=== PATIENT | male | born 1960 | race Caucasian/White ===

== ENCOUNTER 2017-02-27 21:13 | Emergency (ER) | payer OTHER ==
[2017-02-27 21:20] VITALS: PULSE 74
--- NOTE | 2017-02-27 21:33 | EDPHY ---
H & P Stated Complaint: skin irritation /infection to l hip Source: Patient - Personal History Current Tetanus/Diphtheria Vaccine: Yes Current Tetanus Diphtheria and Acellular Pertussis (TDAP): Yes - Medical/Surgical History Hx Asthma: No Hx Chronic Respiratory Disease: No Hx Diabetes: No Hx Cardiac Disease: No Hx Renal Disease: No Hx Cirrhosis: No Hx Alcoholism: No Hx HIV/AIDS: No Hx Splenectomy or Spleen Trauma: No Other PMH: tonsils. wisdom teeth - Social History Smoking Status: Never smoked HPI/ROS: HPI CHIEF COMPLAINT: Left hip Infection. HISTORY OF PRESENT ILLNESS: Patient very pleasant 56-year-old male, he denies having any significant medical history does not take any daily medications presents emergency room with left hip redness swelling and pain. He states on Sunday he noticed a bump there however today it has progressively gotten worsening pain and swelling and redness and warmth. He has no pain with range of motion of the hip. He denies fever chills. Denies feeling ill. Over the lateral aspect of his left hip there is an area of redness with swelling present. There is a head present. Appears to be localized area of cellulitis. It does streak a little bit to the inner groin but no palpable lymphadenopathy or cord. Past Medical History: Denies medical history Past Surgical History: Denies surgical history Social History: Denies daily use drugs alcohol tobacco products. Family History: Noncontributory. ROS REVIEW OF SYSTEMS: A comprehensive 10 point review of systems is otherwise negative aside from elements mentioned in the history of present illness. Exam Constitutional triage nursing summary reviewed, vital signs reviewed, awake/ alert. Eyes normal conjunctivae and sclera, EOMI, PERRLA. HENT normal inspection, atraumatic, moist mucus membranes, no epistaxis, neck supple/ no meningismus, no raccoon eyes. Respiratory clear to auscultation bilaterally, normal breath sounds, no respiratory distress, no wheezing. Cardiovascular rate normal, regular rhythm, no murmur, no edema, distal pulses normal. Gastrointestinal soft, non-tender, no rebound, no guarding, normal bowel sounds, no distension, no pulsatile mass. Genitourinary no CVA tenderness. Musculoskeletal no midline vertebral tenderness, full range of motion, no calf swelling, no tenderness of extremities, no meningismus, good pulses, neurovascularly intact. Skin Left Lateral Hip: Area of erythema and swelling present. Area of a central head. Air cellulitis 2 cm wide by 6 cm horizontally long streaking to the groin. It has been outline. Area of induration present. Neurologic awake, alert and oriented x 3, AAOx3, moves all 4 extremities equally, motor intact, sensory intact, CN II-XII intact, normal cerebellar, normal vision, normal speech. Psychiatric normal mood/affect. Heme/Lymph/Immune no lymphadenopathy. Differential Diagnosis: Includes but is not limited to in a particular order focal cellulitis, abscess, MRSA infection, strep infection Medical Decision Making: Plan for this patient bedside ultrasound to see if there is a pus pocket that needs to be drained, placed on Keflex and Bactrim. Warm compresses. Check basic blood work. Re-evaluation: 2202: I did perform a bedside ultrasound of the area of cellulitis. There is a very small area of pus pocket directly over the head. This will be I indeed. 2306: Blood work is unremarkable. No high leukocytosis. Infection is been outline. I and D is been performed culture sent. Patient started on Bactrim and Keflex. Understands do warm compresses 3 to 4 times a day or warm soaks. Return if worsening redness swelling pain or fever. Take antibiotics as prescribed. Return if worsening symptoms he understands. Return precautions given. (Blas Mead) Constitutional: Initial Vital Signs Temperature (C) 36.9 C 02/27/17 21:16 Heart Rate 74 02/27/17 21:16 Respiratory Rate 18 02/27/17 21:16 Blood Pressure 136/82 H 02/27/17 21:16 O2 Sat (%) 97 02/27/17 21:16 O2 Delivery Mode Room Air Allergies/Adverse Reactions: No Known Allergies Allergy (Unverified 02/27/17 21:16) Home Medications: Medication Instructions Recorded Cephalexin [Keflex] 500 mg PO Q6H #28 cap 02/27/17 Sulfamethox/Tmp 800/160 mg 1 tab PO BID@1000,2200 #14 tab 02/27/17 [Bactrim Ds] Medical Decision Making Procedures: Procedure: Abscess drainage. The patient's abscess was located on the left lateral hip. I obtained verbal consent from the patient to drain the abscess who was informed about the possibility of bleeding and pain. The abscess was incised with #11 scalpel and a 4 mL amount of purulent drainage was expressed. Wound culture sent. I irrigated the wound copiously. Clean sterile dressing placed. The patient tolerated the procedure well. The procedure was performed by myself. (Carla Contreras) - Data Points Laboratory Results: Laboratory Results 02/27/17 22:11 02/27/17 22:11 02/27/17 02/27/17 22:11 22:11 WBC 7.28 10^3/uL 10^3/uL (3.80-9.50) RBC 4.92 10^6/uL 10^6/uL (4.40-6.38) Hgb 15.6 g/dL g/dL (13.7-17.5) Hct 44.4 % % (40.0-51.0) MCV 90.2 fL fL (81.5-99.8) MCH 31.7 pg pg (27.9-34.1) MCHC 35.1 g/dL g/dL (32.4-36.7) RDW 12.0 % % (11.5-15.2) Plt Count 191 10^3/uL 10^3/uL (150-400) MPV 9.6 fL fL (8.7-11.7) Neut % (Auto) 71.7 % % (39.3-74.2) Lymph % (Auto) 19.5 % % (15.0-45.0) Vance % (Auto) 7.4 % % (4.5-13.0) Eos % (Auto) 1.0 % % (0.6-7.6) Baso % (Auto) 0.3 % % (0.3-1.7) Nucleat RBC Rel Count 0.0 % % (0.0-0.2) Absolute Neuts (auto) 5.22 10^3/uL 10^3/uL (1.70-6.50) Absolute Lymphs (auto) 1.42 10^3/uL 10^3/uL (1.00-3.00) Absolute Monos (auto) 0.54 10^3/uL 10^3/uL (0.30-0.80) Absolute Eos (auto) 0.07 10^3/uL 10^3/uL (0.03-0.40) Absolute Basos (auto) 0.02 10^3/uL 10^3/uL (0.02-0.10) Absolute Nucleated RBC 0.00 10^3/uL 10^3/uL (0-0.01) Immature Gran % 0.1 % % (0.0-1.1) Immature Gran # 0.01 10^3/uL 10^3/uL (0.00-0.10) Sodium 141 mEq/L mEq/L (134-144) Potassium 4.4 mEq/L mEq/L (3.5-5.2) Chloride 103 mEq/L mEq/L (97-110) Carbon Dioxide 27 mEq/l mEq/l (22-31) Anion Gap 11 mEq/L mEq/L (8-16) BUN 21 mg/dL mg/dL (7-23) Creatinine 0.9 mg/dL mg/dL (0.7-1.3) Estimated GFR > 60 Glucose 96 mg/dL mg/dL (70-100) Calcium 9.6 mg/dL mg/dL (8.5-10.4) Medications Given: Discontinued Medications Cephalexin (Keflex 500 Mg Prepack#4) 1 btl TAKEHOME EDNOW ONE PRN Reason: Protocol Stop: 02/27/17 21:38 Last Admin: 02/27/17 22:39 Dose: 1 btl Cephalexin HCl (Keflex) 500 mg PO EDNOW ONE PRN Reason: Protocol Stop: 02/27/17 21:38 Last Admin: 02/27/17 22:31 Dose: 500 mg Trimethoprim/Sulfamethoxazole (Bactrim Ds Prepack#2) 1 btl TAKEHOME EDNOW ONE Stop: 02/27/17 21:38 Last Admin: 02/27/17 22:38 Dose: 1 btl Trimethoprim/Sulfamethoxazole (Bactrim Ds) 1 ea PO EDNOW ONE PRN Reason: Protocol Stop: 02/27/17 21:38 Last Admin: 02/27/17 22:31 Dose: 1 ea Departure - Departure Disposition: Home, Routine, Self-Care Clinical Impression: Abscess of left hip Condition: Good Instructions: Abscess Incision and Drainage (DC), Warm Compress or Soak (ED) Additional Instructions: 1. Take antibiotics as prescribed. 2. Warm compresses 3 to 4 times a day. 3. Return if worsening symptoms questions or concerns includes worsening redness, swelling, pain or fever. Referrals: FELICITA LIU [Other] - As per Instructions Prescriptions: Cephalexin [Keflex] 500 mg PO Q6H #28 cap Sulfamethox/Tmp 800/160 mg [Bactrim Ds] 1 tab PO BID@1000,2200 #14 tab
[2017-02-27] MEDS ORDERED: SULFAMET/TMP DS PREPACK#2 BTL TAKEHOME ONE (21:37)
[2017-02-27] MEDS ORDERED: SULFAMETHOX/TMP 800/160 MG 1 TAB PO ONE (21:37)
[2017-02-27] MEDS ORDERED: CEPHALEXIN 500 MG CAP PO ONE (21:37)
[2017-02-27] MEDS ORDERED: CEPHALEXIN 500MG PREPACK#4 BTL TAKEHOME ONE (21:37)
[2017-02-27 22:26] LABS: PLATELET COUNT 191 10^3/uL (150-400)
[2017-02-27 23:27] VITALS: BP 121/66; RESP 16; TEMP 97.5; O2SAT 95
== END 2017-02-27 23:25 | disposition home or self-care (01) ==
PROC: 0H9HXZZ Drainage of Right Upper Leg Skin, External Approach (ICD-10-PCS; principal; 2017-02-27)
DX: L02.416 Cutaneous abscess of left lower limb (principal)